=== PATIENT | female | born 1985 | race Caucasian/White ===

== ENCOUNTER 2017-05-21 07:36 | Emergency (ER) | payer OTHER ==
[~2017-05-21] VITALS: Ht 172.7 cm; Wt 129.3 kg
[~2017-05-21 07:36] MED LIST: APAP/CODEINE ELI5 M1 OR; ASPIRIN325 PO; CORTISPORIN OTI10 M2 OTIC; FLEXERIL PO; FLONASE 0.05%50 MCG NASAL; GARAMYCIN5 M1 OP; HYDROCODONE-AC120 ML PO; HYDROCORTISONE120 M1 TP; IBUPROFEN 800800 MG PO; LORTABELXR PO; NAPROSYN500 MG PO; NOHOMEMEDICATIONS; NORCO 5-325 TA1 EACH PO; PERCOCET 5-3251 EACH PO; PHENERGAN 25 MG25 M1 PO; TRAMADOL 50 MG50 MG PO; ULTRAM 50MG TAB50 MG PO; VALIUM5 MG PO; ZANAFLEX4 MG PO; ZOFRAN ODT4 MG PO; ZPAK PO
[2017-05-21 07:51] VITALS: BP 111/79
[2017-05-23] MEDS ORDERED: DELTASONE20 MG PO (10:55)
[2017-05-23] MEDS ORDERED: PEPCID20 MG PO (10:55)
== END 2017-05-21 08:18 | disposition home or self-care (01) ==
LOC: ER 07:36
DX: R21 Rash and other nonspecific skin eruption (principal); Z91.048 Other nonmedicinal substance allergy status

== ENCOUNTER 2017-07-07 19:45 | Emergency (ER) | payer OTHER ==
[~2017-07-07] VITALS: Ht 172.7 cm; Wt 131.5 kg
[~2017-07-07 19:45] MED LIST changes: +DELTASONE20 MG PO; +PEPCID20 MG PO
[2017-07-07] MEDS ORDERED: IBUPROFEN 600600 M1 PO (21:01)
[2017-07-07 21:28] VITALS: BP 117/70
== END 2017-07-07 21:28 | disposition home or self-care (01) ==
LOC: ER 19:45
DX: S63.501A Unspecified sprain of right wrist, initial encounter (principal); Z91.048 Other nonmedicinal substance allergy status; W18.39XA Other fall on same level, initial encounter; Y93.89 Activity, other specified; Y92.009 Unspecified place in unspecified non-institutional (private) residence as the place of occurrence of the external cause; Y99.8 Other external cause status

== ENCOUNTER 2017-12-24 18:44 | Emergency (ER) | payer OTHER ==
[~2017-12-24] VITALS: Ht 172.7 cm; Wt 136.1 kg
[~2017-12-24 18:44] MED LIST changes: +IBUPROFEN 600600 M1 PO; +ZOFRAN ODT8 MG PO
[2017-12-24] MEDS ORDERED: AMOXICILLIN500 M1 PO (19:15)
== END 2017-12-24 19:48 | disposition home or self-care (01) ==
LOC: ER 18:44
DX: J10.1 Influenza due to other identified influenza virus with other respiratory manifestations (principal); H92.01 Otalgia, right ear; Z88.8 Allergy status to other drugs, medicaments and biological substances

== ENCOUNTER 2018-10-31 17:35 | Emergency (ER) | payer OTHER ==
[~2018-10-31] VITALS: Ht 172.7 cm; Wt 115.7 kg
[~2018-10-31 17:35] MED LIST changes: +AMOXICILLIN500 M1 PO
[2018-10-31] MEDS ORDERED: ULTRAM 50MG TAB50 MG PO (18:29)
[2018-10-31 19:02] VITALS: BP 153/77
== END 2018-10-31 19:03 | disposition home or self-care (01) ==
LOC: ER 17:35
DX: S80.211A Abrasion, right knee, initial encounter (principal); Z23 Encounter for immunization; Z91.048 Other nonmedicinal substance allergy status; W10.9XXA Fall (on) (from) unspecified stairs and steps, initial encounter; Y92.89 Other specified places as the place of occurrence of the external cause; Y93.89 Activity, other specified; Y99.8 Other external cause status

== ENCOUNTER 2019-11-03 20:48 | Emergency (ER) | payer OTHER ==
[~2019-11-03] VITALS: Ht 172.7 cm; Wt 136.1 kg
[2019-11-03] MEDS ORDERED: MOBIC7.5 MG PO (22:03)
[2019-11-03 22:15] VITALS: BP 145/99
== END 2019-11-03 22:16 | disposition home or self-care (01) ==
LOC: ER 20:48
DX: M77.31 Calcaneal spur, right foot (principal); M72.2 Plantar fascial fibromatosis; Z91.048 Other nonmedicinal substance allergy status

== ENCOUNTER → 2020-05-07 | Outpatient (CLI) | payer OTHER ==
[~2020-05-07] MED LIST changes: +MOBIC7.5 MG PO
== END ==
LOC: ULTRA 08:44
PROVIDERS: ATTEND Internal Medicine
DX: E05.90 Thyrotoxicosis, unspecified without thyrotoxic crisis or storm (principal); E07.89 Other specified disorders of thyroid

== ENCOUNTER 2020-06-27 10:37 | Emergency (ER) | payer OTHER ==
[~2020-06-27] VITALS: Ht 172.7 cm; Wt 142.9 kg
--- NOTE | ~2020-06-27 | EMS ---
[address] [address] EMS Patient Care Report Name: REJI ADAM Room #: DEP VIKRAM [place]#: [id number] Admission: 06/27/20 Attend Phys: Discharge: 06/27/20 Date of : 83 Report #: [id number] THIS REPORT FOR: //name// Report Transmitted: 06/29/2020 08:21 EMS Care Summary [place], [place]/[facility] Incident [id number] @ 06/27/2020 10:00 Incident Location [address] [place] [address] Patient REJI ADAM Female, 34 Years 1985 Patient Address [address] [place], [place] [id number] Patient History Graves' Disease, Patient Allergies No known allergies, Patient Medications Other, Chief Complaint CHEST PAIN Disposition Transported No Lights/[place] Dispatch Reason Chest Pain (Non-Traumatic) Transported To [facility] Narrative DISPATCHED TO A CHEST PAIN AT THE [facility]. ARRIVED ON SCENE TO BE LED DTO FEMALE PATIENT WHO SAID THAT SHE HAD A SHARP MIDSTERNAL CHEST PAIN LASTING APPROXIMATLY 3 MINUTES PRIOR TO EMS ARRIVAL. THE PAIN MOVED TO HER BACK WHEN SHE SAT UP. SHE SAID THE PAIN CAME ON WHILE SHE WAS SITTING ON THE PHONE WITH HER . THE PAIN HAD RESOLVED PRIOR TO EMS ARRIVAL AND NOW SHE SAYS SHES [address] [address] EMS Patient Care Report Name: REJI ADAM Room #: DEP [facility]#: [id number] Admission: 06/27/20 Attend Phys: Discharge: 06/27/20 Date of : 83 Report #: [id number] JUST FEELIN HOT. PATIENT WAS ALSO RECENTLY DIAGNOSED WITH GRAVES DISEASE AND THINKS THAT IT IS POSSIBLY HER NEW MEDICATION. HER VITALS WERE OBTAINED ALONG WITH A 12 LEAD. SHE WAS ASSISTED IN STANDING AND SITTING ON THE COT, SECURED WITH STRAPS, AND MOVED TO THE AMBULANCE. PATIENT WAS TRANSPORTED TO THE HOSPITAL WITH VITALS MONITORED ENROUTE. UPON ARRIVAL PATIENT WAS MOVED INTO ED ROOM 6 ON THE COT AND ASSISTED IN MOVING OVER TO THE HOSPITAL BED. PATIENT CARE WAS TURNED OVER TO ED NURSING STAFF. Initial Vitals @10:11P: 75,CO: 2,SpO2: 81, @10:18P: 80,BP: 131/80,CO: 1,SpO2: 100, @10:11P: 70,SpO2: 98,[place] Suspected: false @10:29P: 75,R: 18,BP: 136/62,Pain: 0/10,GCS: 15,SpO2: 98,Revised Trauma: 12, @10:07P: 87,R: 18,BP: 138/83,Pain: 0/10,GCS: 15,SpO2: 100,Revised Trauma: 12, Assessments @10:05MENTAL:Person Oriented,Time Oriented,Place Oriented,Event Oriented,SKIN:HEENT:Head/Face: No Abnormalities,Neck/Airway: No Abnormalities,LUNG SOUNDS:General: No Abnormalities,Left Upper: No Abnormalities,Right Upper: No Abnormalities,Left Lower: No Abnormalities,Right Lower: No Abnormalities,ABDOMEN:General: No Abnormalities,Left Upper: No Abnormalities,Right Upper: No Abnormalities,Left Lower: No Abnormalities,Right Lower: No Abnormalities,PELVIS//GI:No Abnormalities,EXTREMITIES:Capillary Refill: Right Upper: < 2 Sec,Left Arm: No Abnormalities,Right Arm: No Abnormalities,Left Leg: No Abnormalities,Right Leg: No Abnormalities,PULSE:Radial: 2+ Normal,NEURO:No Abnormalities, Impression Chest Pain / Discomfort Procedures @10:05ALS AssessmentResponse: UnchangedSucceeded@10:073-Lead ECGResponse: UnchangedSucceeded@10:1112-Lead ECGResponse: UnchangedSucceeded Timeline 09:58,Call Received 09:58,Dispatch Notified 10:00,Dispatched 10:00,En Route 10:04,On Scene 10:05,At Patient 10:05,ALS Assessment,Response: UnchangedSucceeded, 10:07,3-Lead ECG,Response: UnchangedSucceeded, 10:07,BP: 138/83 M,PULSE: 87,RR: 18 R,SPO2: 100 Ox,ETCO2: ,BG: ,PAIN: 0,GCS: 15, 10:11,12-Lead ECG,Response: UnchangedSucceeded, [facility] [address] [place] [address] EMS Patient Care Report Name: REJI ADAM Room #: [facility] Carly#: [id number] Admission: 06/27/20 Attend Phys: Discharge: 06/27/20 Date of : 83 Report #: [id number] 10:11,BP: / M,PULSE: 70,RR: R,SPO2: 98 Ox,ETCO2: ,BG: ,PAIN: ,GCS: , 10:11,BP: / M,PULSE: 75,RR: R,SPO2: 81 Ox,ETCO2: ,BG: ,PAIN: ,GCS: , 10:18,BP: 131/80 M,PULSE: 80,RR: R,SPO2: 100 Ox,ETCO2: ,BG: ,PAIN: ,GCS: , 10:19,Depart Scene 10:29,BP: 136/62 M,PULSE: 75,RR: 18 R,SPO2: 98 Ox,ETCO2: ,BG: ,PAIN: 0,GCS: 15, 10:33,At Destination 10:48,Call Closed Disclaimer v1.1 Copyright 2020 [employer] This EMS Care Summary contains data elements from the applicable legal record (which may be displayed differently). It is designed to provide pertinent information for the following purposes: continuity of care, clinical quality, and state data reporting. The complete legal record is available to ED staff and administrators of the receiving hospital in [employer]'s Patient Tracker. All data is provided "as is."
--- NOTE | ~2020-06-27 | EMS ---
[address] [address] EMS Patient Care Report Name: REJI ADAM Room #: PRE M.R.#: [id number] Admission: Attend Phys: Discharge: Date of : 83 Report #: [id number] THIS REPORT FOR: //name// Report Transmitted: 06/27/2020 10:26 EMS Care Summary [place], [place]/[facility] Incident [id number] @ 06/27/2020 10:00 Incident Location [address] [place] [address] Patient REJI ADAM Female, 34 Years 1985 Patient Address [address] [place] [address] Patient History Graves' Disease, Patient Allergies No known allergies, Patient Medications Other, Chief Complaint CHEST PAIN Disposition Transported No Lights/[place] Dispatch Reason Chest Pain (Non-Traumatic) Transported To [place] [facility] Narrative DISPATCHED TO A CHEST PAIN AT THE [facility]. ARRIVED ON SCENE TO BE LED DTO FEMALE PATIENT WHO SAID THAT SHE HAD A SHARP MIDSTERNAL CHEST PAIN LASTING APPROXIMATLY 3 MINUTES PRIOR TO EMS ARRIVAL. THE PAIN MOVED TO HER BACK WHEN SHE SAT UP. SHE SAID THE PAIN CAME ON WHILE SHE WAS SITTING ON THE PHONE WITH HER . THE PAIN HAD RESOLVED PRIOR TO EMS ARRIVAL AND NOW SHE SAYS SHES [address] [address] EMS Patient Care Report Name: REJI ADAM Room #: PRE Carly#: [id number] Admission: Attend Phys: Discharge: Date of : 83 Report #: [id number] JUST FEELIN HOT. PATIENT WAS ALSO RECENTLY DIAGNOSED WITH GRAVES DISEASE AND THINKS THAT IT IS POSSIBLY HER NEW MEDICATION. HER VITALS WERE OBTAINED ALONG WITH A 12 LEAD. SHE WAS ASSISTED IN STANDING AND SITTING ON THE COT, SECURED WITH STRAPS, AND MOVED TO THE AMBULANCE. PATIENT WAS TRANSPORTED TO THE HOSPITAL WITH VITALS MONITORED ENROUTE. UPON ARRIVAL PATIENT WAS MOVED INTO ED ROOM 6 ON THE COT AND ASSISTED IN MOVING OVER TO THE HOSPITAL BED. PATIENT CARE WAS TURNED OVER TO ED NURSING STAFF. Initial Vitals @10:11P: 75,CO: 2,SpO2: 81, @10:18P: 80,BP: 131/80,CO: 1,SpO2: 100, @10:11P: 70,SpO2: 98,[place] Suspected: false @10:29P: 75,R: 18,BP: 136/62,Pain: 0/10,GCS: 15,SpO2: 98,Revised Trauma: 12, @10:07P: 87,R: 18,BP: 138/83,Pain: 0/10,GCS: 15,SpO2: 100,Revised Trauma: 12, Assessments @10:05MENTAL:Person Oriented,Time Oriented,Place Oriented,Event Oriented,SKIN:HEENT:Head/Face: No Abnormalities,Neck/Airway: No Abnormalities,LUNG SOUNDS:General: No Abnormalities,Left Upper: No Abnormalities,Right Upper: No Abnormalities,Left Lower: No Abnormalities,Right Lower: No Abnormalities,ABDOMEN:General: No Abnormalities,Left Upper: No Abnormalities,Right Upper: No Abnormalities,Left Lower: No Abnormalities,Right Lower: No Abnormalities,PELVIS//GI:No Abnormalities,EXTREMITIES:Capillary Refill: Right Upper: < 2 Sec,Left Arm: No Abnormalities,Right Arm: No Abnormalities,Left Leg: No Abnormalities,Right Leg: No Abnormalities,PULSE:Radial: 2+ Normal,NEURO:No Abnormalities, Impression Chest Pain / Discomfort Procedures @10:05ALS AssessmentResponse: UnchangedSucceeded@10:073-Lead ECGResponse: UnchangedSucceeded@10:1112-Lead ECGResponse: UnchangedSucceeded Timeline 09:58,Call Received 09:58,Dispatch Notified 10:00,Dispatched 10:00,En Route 10:04,On Scene 10:05,At Patient 10:05,ALS Assessment,Response: UnchangedSucceeded, 10:07,3-Lead ECG,Response: UnchangedSucceeded, 10:07,BP: 138/83 M,PULSE: 87,RR: 18 R,SPO2: 100 Ox,ETCO2: ,BG: ,PAIN: 0,GCS: 15, 10:11,12-Lead ECG,Response: UnchangedSucceeded, [facility] [address] [place] [address] EMS Patient Care Report Name: RICKREJI FREDERICK Room #: [facility] M.R.#: [id number] Admission: Attend Phys: Discharge: Date of : 83 Report #: [id number] 10:11,BP: / M,PULSE: 70,RR: R,SPO2: 98 Ox,ETCO2: ,BG: ,PAIN: ,GCS: , 10:11,BP: / M,PULSE: 75,RR: R,SPO2: 81 Ox,ETCO2: ,BG: ,PAIN: ,GCS: , 10:18,BP: 131/80 M,PULSE: 80,RR: R,SPO2: 100 Ox,ETCO2: ,BG: ,PAIN: ,GCS: , 10:19,Depart Scene 10:29,BP: 136/62 M,PULSE: 75,RR: 18 R,SPO2: 98 Ox,ETCO2: ,BG: ,PAIN: 0,GCS: 15, 10:33,At Destination 10:48,Call Closed Disclaimer v1.1 Copyright 2020 [email or web address] This EMS Care Summary contains data elements from the applicable legal record (which may be displayed differently). It is designed to provide pertinent information for the following purposes: continuity of care, clinical quality, and state data reporting. The complete legal record is available to ED staff and administrators of the receiving hospital in [employer]'s Patient Tracker. All data is provided "as is."
[2020-06-27] MEDS ORDERED: METHIMAZOLE5 MG PO (10:47)
[2020-06-27] MEDS ORDERED: NABUMETONE 500500 M1 PO (10:47)
[2020-06-27 11:22] LABS: ABSOLUTE NEUTROPHILS 4.6 thou/uL (1.4-8.2); BASOPHILS 0.3 % (0.0-2.0); EOSINOPHILS 0.9 % (0.0-3.0); HEMATOCRIT 41.7 % (37.0-47.0); LYMPHOCYTES 22.8 % (24.0-44.0); MCHC 33.5 g/dL (28.0-37.0); MCV 92.5 fL (80.0-100.0); MONOCYTES 6.8 % (1.0-8.0); PLATELET COUNT 254 thou/uL (150-400); POLYS 69.2 % (36.0-66.0); RBC 4.51 mil/uL (4.20-5.00); RDW 13.4 % (10.5-14.5); WBC 6.6 thou/uL (4.0-11.0)
[2020-06-27 11:36] LABS: ANION GAP 7 mmol/L (7-16); BUN 10 mg/dL (7-18); CALCIUM 8.6 mg/dL (8.5-10.1); CHLORIDE 106 mmol/L (98-107); CO2 27 mmol/L (21-32); CREATININE 0.9 mg/dL (0.6-1.0); GLUCOSE 100 mg/dL (74-106); POTASSIUM 3.9 mmol/L (3.5-5.1); SODIUM 140 mmol/L (136-145)
[2020-06-27 11:45] LABS: TROPONIN-I <0.06 ng/mL (<0.06)
[2020-06-27 12:10] VITALS: BP 120/75
--- NOTE | 2020-06-28 09:07 | EKG ---
[facility] [address] ELECTROCARDIOGRAM REPORT Name: REJI ADAM Room #: DEP [facility]..#: [id number] Admission: 06/27/20 Attend Phys: Discharge: 06/27/20 Date of : 83 Report #: [id number] THIS REPORT FOR: cc: Mau Still MD, Neal A. MD Couchonnal, Luis F. 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
== END 2020-06-27 12:10 | disposition home or self-care (01) ==
LOC: ER 10:37
PROVIDERS: Emergency Medicine
DX: R07.2 Precordial pain (principal); Z79.899 Other long term (current) drug therapy; Z91.048 Other nonmedicinal substance allergy status

== ENCOUNTER → 2021-05-07 | Outpatient (CLI) | payer BC, OTHER ==
[~2021-05-07] MED LIST changes: +METHIMAZOLE5 MG PO; +NABUMETONE 500500 M1 PO
== END ==
LOC: MRI 09:03
PROVIDERS: ATTEND Family Medicine
DX: E05.90 Thyrotoxicosis, unspecified without thyrotoxic crisis or storm (principal); E05.00 Thyrotoxicosis with diffuse goiter without thyrotoxic crisis or storm

== ENCOUNTER 2021-10-27 16:45 | Emergency (ER) | payer BC, OTHER ==
[~2021-10-27] VITALS: Ht 172.7 cm; Wt 145.2 kg
[2021-10-27 17:22] VITALS: BP 153/84
[2021-10-27] MEDS ORDERED: AUGMENTIN 875-1 EACH PO (18:02)
[2021-10-27] MEDS ORDERED: MECLIZINE HCL25 M1 PO (18:02)
[2021-10-27] MEDS ORDERED: ZOFRAN ODT4 MG PO (18:02)
[2021-10-27] MEDS ORDERED: AZELASTINE205.5 MCG/ NARES (18:02)
--- NOTE | 2021-10-28 11:21 | EKG ---
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1985 Requested By: Sarah Vick Order Number: [id number] MD: Jenaro Ware Measurements Intervals [place] Rate: 59 P: 46 DE: 187 QRS: 22 QRSD: 95 T: 31 QT: 387 QTc: 384 Interpretive Statements Sinus rhythm RSR' in V1 or V2, right VCD or RVH Compared to ECG 06/27/2020 10:47:36 Right ventricular hypertrophy now present RSR' in V1 or V2 now present Atrial fibrillation no longer present Intraventricular conduction delay no longer present Electronically Signed On 10-28-2021 11:20:52 DIRECTOR OF [employer]PORATE [employer]ATEGY by Jenaro Ware [email or web address] <ELECTRONICALLY SIGNED> By: Jenaro Ware MD, FACC 10/28/21 1120 1729 1729 Jenaro Ware MD, [facility] /EPI
== END 2021-10-27 18:14 | disposition home or self-care (01) ==
LOC: ER 16:45
DX: R42 Dizziness and giddiness (principal); J01.90 Acute sinusitis, unspecified; H66.93 Otitis media, unspecified, bilateral; Z79.899 Other long term (current) drug therapy; Z91.09 Other allergy status, other than to drugs and biological substances